=== PATIENT | female | born 1990 | race Hispanic/Latino ===

== ENCOUNTER 2022-03-10 18:06 | Emergency (ER) | payer OTHER ==
[~2022-03-10] VITALS: Ht 162.6 cm; Wt 77.1 kg
[2022-03-10] MEDS ORDERED: ACETAMINOPHEN 500 MG TABLET PO ONE (18:30)
[2022-03-10 19:29] VITALS: BP 119/73
[2022-03-10] MEDS ORDERED: NAPR-1180 PO (19:36)
== END 2022-03-10 19:41 | disposition home or self-care (01) ==
LOC: EDH 18:06
DX: S16.1XXA Strain of muscle, fascia and tendon at neck level, initial encounter (principal); S20.212A Contusion of left front wall of thorax, initial encounter; S80.12XA Contusion of left lower leg, initial encounter; Z79.1 Long term (current) use of non-steroidal anti-inflammatories (NSAID); V49.49XA Driver injured in collision with other motor vehicles in traffic accident, initial encounter; Y93.89 Activity, other specified; Y92.89 Other specified places as the place of occurrence of the external cause; Y99.8 Other external cause status
CPT/HCPCS: 36415; 71250; 72125; 73590; 84703

== ENCOUNTER 2024-08-20 19:50 | Emergency (ER) | payer OTHER ==
[~2024-08-20] VITALS: Ht 162.6 cm; Wt 72.6 kg
[~2024-08-20 19:50] MED LIST: NAPR-1180 PO
[2024-08-20 20:50] LABS: BASOPHILS # (AUTO) 0.06 K/uL (0.00-0.20); BASOPHILS % (AUTO) 0.4 % (0.0-5.0); EOSINOPHILS # (AUTO) 0.02 K/uL (0.00-0.70); EOSINOPHILS % (AUTO) 0.1 % (0.0-8.0); HEMATOCRIT 31.9 % (36-48); IMMATURE GRANULOCYTE ABSOLUTE 0.07 K/uL (0-1); LYMPHOCYTES # (AUTO) 1.3 K/uL (1.0-4.8); LYMPHOCYTES % (AUTO) 8.6 % (21.0-51.0); MEAN CORPUSCULAR HEMOGLOBIN 26.2 pg (27.0-33.0); MEAN CORPUSCULAR VOLUME 81.8 fL (79-99); MONOCYTES # (AUTO) 0.3 K/uL (0.1-1.0); MONOCYTES % (AUTO) 1.8 % (3.0-13.0); NEUTROPHILS # (AUTO) 13.3 K/uL (1.8-7.7); NEUTROPHILS % (AUTO) 88.6 % (40.0-77.0); PLATELET COUNT (AUTO) 536 K/uL (130-400); RED CELL DISTRIBUTION WIDTH 14.8 % (11.0-15.5)
[2024-08-20 21:03] LABS: CREATININE 0.7 mg/dL (0.5-1.0); POTASSIUM 3.4 mmol/L (3.5-5.1)
[2024-08-20 21:08] LABS: ALBUMIN 3.6 g/dL (3.5-5.0); BILIRUBIN,DIRECT 0.1 mg/dL (0.0-0.3); BILIRUBIN,TOTAL 0.3 mg/dL (0.2-1.0); TOTAL PROTEIN, SERUM 7.7 g/dL (6.0-8.3)
--- NOTE | 2024-08-20 21:30 | HMCIMG ---
CHEST 1VW HISTORY: Chest pain COMPARISON: None FINDINGS: A frontal projection of the chest was obtained. No acute pulmonary infiltrates is seen. The heart is normal in size. Prominent interstitial markings are seen. No evidence of aortic calcification is seen. IMPRESSION: 1. No acute pulmonary infiltrate is seen.
[2024-08-20] MEDS: 0.9%NACL 1000ML 1,000 ML IV ONE (21:51)
[2024-08-20] MEDS: PANTOPrazole 40 MG/VIAL IVP ONE (21:51)
[2024-08-20] MEDS: morPHINE 4 MG SYG IVP ONE (21:52)
[2024-08-20] MEDS: ondanSETRON 4MG INJ IVP ONE (21:52)
[2024-08-21] MEDS ORDERED: IOHEXOL 350 MG/ML 100ML INFUS..BTL IV ONE (00:36)
--- NOTE | 2024-08-21 00:44 | ERN ---
ED Note History of Present Illness Stated Complaint: ABD PAIN, BLURRY VISION, CHEST PAIN Chief Complaint: Abdominal Pain Time Seen by MD: 19:51 Time Seen by Midlevel: 19:51 Dictation: Patient is a 34-year-old female with no significant medical history who presents to the emergency department with complaints of right upper and lower abdominal pain, chest pain, nausea nonbloody vomiting, blurry vision onset 3:00 p.m.. Patient denies any headache, head trauma, fevers diarrhea or constipation. Allergies: Coded Allergies: No Known Allergies (Unverified Allergy, Unknown, 03/10/22) Home Meds Active Scripts Pantoprazole Sodium (Protonix) 20 Mg Tablet.dr, 1 TAB PO DAILY for 30 Days, #30 TAB 0 Refills Prov:RON GONZALEZ 08/21/24 Ondansetron (Ondansetron Odt) 4 Mg Tab.rapdis, 4 MG PO BID for 7 Days, #14 TAB Prov:RON GONZALEZ 08/21/24 Naproxen (Naprosyn) 500 Mg Tablet, 500 MG PO BIDPC, #60 TAB Prov:USLEMA LIN 03/10/22 Past Medical History Past Medical History: No Pertinent History Surgical History: None Family History: Negative Social History: Negative RN Note Reviewed/Agreed w/PFSH: Yes Review of System Dictation Constitutional: Negative for fever,chills, and weight loss Eyes: Negative for injury, pain,redness, and discharge positive for blurry vision ENT: Negative for injury,pain or swelling Cardiovascular: Negative for palpitations, and edema positive for chest pain Respiratory: Negative for shortness of breath, cough, and wheezing, Abdomen/GI: Negative for diarrhea, and constipation positive for abdominal pain, nausea, vomiting, Back: Negative for injury and pain : Negative for injury, bleeding and discharge MS/Extremity: Negative for injury and deformity Skin: Negative for rash, and discoloration Neuro: Negative for headache, weakness, numbness, tingling, and seizure Psych: Negative for suicide ideation, homicidal ideation, and hallucinations Initial Vital Sign VS Vital Signs Date Time Temp Pulse Resp B/P (MAP) Pulse Ox O2 Delivery O2 Flow Rate FiO2 08/20/24 20:32 98.2 67 20 121/75 100 Room Air 08/20/24 22:04 0 21 Physical Exam Dictation Vital Signs reviewed General Appearance: Alert, oriented x 3, no acute distress, well developed, nourished. Head and Face: non-traumatic. Eyes: PERRL, pink conjunctivas, eyelid no trauma, anterior chamber with arcus senilis. Ears: Pinnas intact and no signs of trauma or erythema ear canals clear and no discharge TM no erythema Nose: No discharge, no bleeding. Oropharynx: Mouth normal, tongue pink. pharynx clear,no erythema, tonsils no exudates, no abscesses noted, mucous membrane moist Neck: Supple, non-tender, no thyromegaly, no masses, no JVD, no bruits Breast:Deferred Chest:No tenderness, no crepitus, no paradoxical movement, no retractions Lungs:Clear, well-ventilated, symmetric, no rales, no wheezing, no rhonchi, no stridor, good breath sounds bilaterally Heart: Regular rate, regular rhythm, no murmur, no gallops Vascular: no peripheral edema, Abdomen: Soft, positive bowel sounds, nondistended, no guarding, Right upper and lower tenderness, no rebound, no masses no hepatomegaly, no splenomegaly, no Dugan's sign, no hernias. Rectal: Deferred Genital: Deferred Neurological: Normal speech, motor function intact, sensory function intact , upper extremities equal in strength, lower extremities equal in strength Musculoskeletal: Neck nontender, full range of motion, back nontender, full range of motion, Extremities: nontender, full range of motion Skin: Color pink, dry, no turgor, no rash, no lacerations, no abrasions, no contusions. Lymphatic: Deferred Results (Laboratory/Radiology) Laboratory/Radiology Laboratory Tests Test 08/20/24 20:43 08/21/24 01:06 White Blood Count 15.0 K/uL (4.8-10.8) H Red Blood Count 3.90 MIL/uL (4.00-5.50) L Hemoglobin 10.2 g/dL (12.0-16.0) L Hematocrit 31.9 % (36-48) L Mean Corpuscular Volume 81.8 fL (79-99) Mean Corpuscular Hemoglobin 26.2 pg (27.0-33.0) L Mean Corpuscular Hemoglobin Concent 32.0 g/dL (32.0-36.0) Red Cell Distribution Width 14.8 % (11.0-15.5) Platelet Count 536 K/uL (130-400) H Mean Platelet Volume 9.5 fL (7.5-10.5) Immature Granulocyte % (Auto) 0.5 % (0-1) Neutrophils (%) (Auto) 88.6 % (40.0-77.0) H Lymphocytes (%) (Auto) 8.6 % (21.0-51.0) L Monocytes (%) (Auto) 1.8 % (3.0-13.0) L Eosinophils (%) (Auto) 0.1 % (0.0-8.0) Basophils (%) (Auto) 0.4 % (0.0-5.0) Neutrophils # (Auto) 13.3 K/uL (1.8-7.7) H Lymphocytes # (Auto) 1.3 K/uL (1.0-4.8) Monocytes # (Auto) 0.3 K/uL (0.1-1.0) Eosinophils # (Auto) 0.02 K/uL (0.00-0.70) Basophils # (Auto) 0.06 K/uL (0.00-0.20) Absolute Immature Granulocyte (auto 0.07 K/uL (0-1) Nucleated Red Blood Cells 0.0 % (0.0-0.19) White Cell Morphology Comment See comments Sodium Level 132 mmol/L (136-145) L Potassium Level 3.4 mmol/L (3.5-5.1) L Chloride Level 98 mmol/L (101-111) L Carbon Dioxide Level 28 mmol/L (21-32) Blood Urea Nitrogen 11 mg/dL (7-18) Creatinine 0.7 mg/dL (0.5-1.0) Glomerular Filtration Rate Calc 116 mL/min (>90) Random Glucose 104 mg/dL (70-105) Total Calcium 8.8 mg/dL (8.5-10.1) Total Bilirubin 0.3 mg/dL (0.2-1.0) Direct Bilirubin 0.1 mg/dL (0.0-0.3) Aspartate Amino Transf (AST/SGOT) 13 U/L (10-37) Alanine Aminotransferase (ALT/SGPT) 14 U/L (12-78) Alkaline Phosphatase 72 U/L (50-136) Total Creatine Kinase 65 U/L (21-232) Troponin I High Sensitivity 8 ng/L (4-50) Total Protein 7.7 g/dL (6.0-8.3) Albumin 3.6 g/dL (3.5-5.0) Lipase 44 U/L (16-77) Serum Test, Qualitative NEGATIVE (NEGATIVE) Urine Color COLORLESS (YELLOW) Urine Appearance CLEAR (CLEAR) Urine pH 6.5 (5.0-8.0) Urine Specific [place] 1.007 (1.001-1.031) Urine Protein NEGATIVE mg/dL (NEGATIVE) Urine Glucose (UA) NEGATIVE mg/dL (NEGATIVE) Urine Ketones 5 mg/dL (NEGATIVE) H Urine Occult Blood NEGATIVE (NEGATIVE) Urine Nitrate NEGATIVE (NEGATIVE) Urine Bilirubin NEGATIVE mg/dL (NEGATIVE) Urine Urobilinogen 0.2 mg/dL (0.2-1.0) Urine Leukocyte Esterase NEGATIVE [place]/uL Urine RBC 0-1 /HPF (0-1) Urine WBC 0-1 /HPF (0-1) Urine Squamous Epithelial Cells RARE /HPF (0-2) Urine Bacteria None /HPF (None Seen) Urine Opiates Screen POSITIVE (NEGATIVE) H Urine Barbiturates Screen NEGATIVE (NEGATIVE) Urine Phencyclidine Screen NEGATIVE (NEGATIVE) Urine Amphetamines Screen NEGATIVE (NEGATIVE) Urine Benzodiazepines Screen NEGATIVE (NEGATIVE) Urine Cocaine Screen NEGATIVE (NEGATIVE) Urine Marijuana (THC) Screen NEGATIVE (NEGATIVE) Labs Reviewed?: Yes EKG: (+) rhythm (Sinus rhythm) EKG Comment: Date:08/20/2024 Time:2024 Ventricular rate:65 NE interval:186 QRS duration:94 QT/QTc:417 EKG interpretation: Sinus rhythm Reviewed by ED Attending no STEMI ED Course ED Course Orders Procedure Category Date Status Time Cbc With Differential LAB 08/20/24 Complete 20:02 Troponin I High LAB 08/20/24 Complete Sensitivity 20:02 Urinalysis Profile LAB 08/20/24 Complete 20:02 12 Lead Ekg Tracing- EKG 08/20/24 Logged Technical 20:02 0.9%Nacl 1000ml (Ns PHA 08/20/24 Complete 1000ml) 20:30 Morphine 4mg Syg PHA 08/20/24 Complete (Morphine 4mg Syg) 20:30 Ondansetron 4mg Inj PHA 08/20/24 Complete (Zofran 4mg Inj) 20:30 Pantoprazole 40mg Inj PHA 08/20/24 Complete (Protonix 40mg Inj 20:30 Creatine Kinase, Total LAB 08/20/24 Complete 20:02 Chest 1vw RAD 08/20/24 Resulted 20:02 Lipase LAB 08/20/24 Complete 20:02 Basic Metabolic Panel LAB 08/20/24 Complete 20:02 Hepatic Function Panel LAB 08/20/24 Complete 20:02 Drug Screen Urine LAB 08/20/24 Complete 21:57 Testing, LAB 08/20/24 Complete Serum Hcg 23:03 Ct Abdomen/Pelvis CT 08/20/24 Resulted W/Contrast 23:35 Iohexol (Omnipaque) PHA 08/21/24 Complete 00:36 Morphine 4mg Syg PHA 08/21/24 Complete (Morphine 4mg Syg) 01:00 Potassium Bicarb/Cit PHA 08/21/24 Complete Ac 25meq (K-Lyte Ta 01:00 Ceftriaxone 1g Vial PHA 08/21/24 Complete (Rocephine 1g Inj) 01:00 Current Medications Medications (Trade) Dose Ordered Sig/Mynor Route PRN Reason Start Time Stop Time Status Last Admin Dose Admin Ceftriaxone Sodium (ROCEphine 1G INJ) 1 gm ONCE ONCE IVPB 08/21/24 01:00 08/21/24 01:01 DC 08/21/24 01:56 Iohexol (Omnipaque) 35,000 mg STK-MED ONCE IV 08/21/24 00:36 08/21/24 00:42 DC Morphine Sulfate (morPHINE 4MG SYG) 4 mg ONCE ONCE IVP 08/20/24 20:30 08/20/24 20:31 DC 08/20/24 21:52 Morphine Sulfate (morPHINE 4MG SYG) 4 mg ONCE ONCE IVP 08/21/24 01:00 08/21/24 01:01 DC 08/21/24 01:01 Ondansetron HCl (zoFRAN 4MG INJ) 4 mg ONCE ONCE IVP 08/20/24 20:30 08/20/24 20:31 DC 08/20/24 21:52 Pantoprazole Sodium (PROTonix 40MG INJ) 40 mg ONCE ONCE IVP 08/20/24 20:30 08/20/24 20:31 DC 08/20/24 21:51 Potassium Bicarbonate (K-Lyte Tablet Eff 25 Meq Tablet.eff) 25 meq ONCE ONCE PO 08/21/24 01:00 08/21/24 01:01 DC 08/21/24 01:56 Sodium Chloride 1,000 ml @ 0 mls/hr ONCE ONCE IV 08/20/24 20:30 08/20/24 20:31 DC 08/20/24 21:51 Vital Signs Date Time Temp Pulse Resp B/P (MAP) Pulse Ox O2 Delivery O2 Flow Rate FiO2 08/20/24 22:04 98.2 65 16 120/75 98 Room Air* 0 21 08/20/24 20:32 98.2 67 20 121/75 100 Room Air [facility] [address] [place] [address] IMAGING REPORT Signed PATIENT: KRISTEL ELLIOTT MR#: [id number] : 1990 SEX: F AGE: 34 LOCATION: [facility] ORDER 35 STATUS: REG ER REPORT#: [id number] SERVICE 34 REASON: rigth upper and lower abd pain ORDERING PHYSICIAN: BENY MESA PROCEDURE: ABD PEL W - CT ABDOMEN/PELVIS W/CONTRAST CT ABDOMEN/PELVIS W/CONTRAST HISTORY: Abdominal pain COMPARISON: None TECHNIQUE: Multiple sequential axial images of the abdomen and pelvis were obtained from the dome of the diaphragm through symphysis pubis. Patient was not given contrast through intravenous route. Oral contrast was not given. FINDINGS: No pleural effusion is seen bilaterally. There is no evidence of parenchymal disease or pulmonary nodule of the visualized lower lungs. Degenerative changes of the thoracolumbar spine are present. The heart is not enlarged. Liver measures 15 cm. Gallbladder is distended. The liver, spleen, adrenal glands and pancreas are unremarkable. There is no evidence of hydronephrosis bilaterally. No evidence of renal stone is seen. Fecal material is seen in the colon. There are normal size retroperitoneal and mesenteric lymph nodes. No ascites is seen. No CT evidence of acute appendicitis is seen. Nonspecific sigmoid colon wall thickening is seen. Clinical correlation is recommended. Pelvic sidewalls are symmetric bilaterally. Bladder is well distended without wall thickening. IMPRESSION: 1. Fecal material in the colon. Nonspecific sigmoid colon wall thickening. No ascites. Gallbladder is distended. CT was performed with one or more following dose reduction techniques: automated exposure control, adjustment of the mA and kv according to patient's size, or use of a iterative reconstruction technique. DICTATED BY: JAVIER HALL MD DATE: 08/21/24129 ELECTRONICALLY SIGNED BY: JAVIER HALL MD DATE: 08/21/24132 Medical Decision Making MDM Patient is a 34-year-old female with no significant medical history who presents to the emergency department with complaints of right upper and lower abdominal pain, chest pain, nausea nonbloody vomiting, blurry vision onset 3:00 p.m.. Patient denies any headache, head trauma, fevers diarrhea or constipation. CBC showed leukocytosis, mild normocytic anemia, chemistry showed mild hypochloremia, hypokalemia, hyponatremia, negative troponin, negative liver enzymes, negative lipase, negative troponin Differential diagnosis: ACS, dehydration, gastroenteritis, pancreatitis, appendicitis, UTI DX & DISP Disposition: Discharge Departure Impression: Primary Impression: Dehydration Additional Impression: Constipation Condition: Stable Scripts Pantoprazole Sodium (Protonix) 20 Mg Tablet.dr 1 TAB PO DAILY for 30 Days, #30 TAB 0 Refills Prov: RON GONZALEZ 08/21/24 Ondansetron (Ondansetron Odt) 4 Mg Tab.rapdis 4 MG PO BID for 7 Days, #14 TAB Prov: RON GONZALEZ 08/21/24 Additional Instructions: Your blood work today is stable. Your urinalysis does not show any evidence of infection. Your CT scan of the abdomen and pelvis shows an enlarged gallbladder but no evidence of acute cholecystitis or any other infection. There is large amount of stool burden on your CT scan. Please follow up with your primary care doctor in 2-3 days for repeat evaluation. Return to the ER for any new or worsening symptoms Referrals: NONE (PCP) Time of Disposition: 01:47 I have reviewed the case, and I agree with, Diagnosis and Plan I performed the substantive portion of the visit. I have reviewed and personally made and approve the management plan that is documented in the note by myself or the IVETTE. I acknowledge for responsibility for the patient's management plan. BENY MESA Aug 21, 2024 00:44 RON GONZALEZ Aug 21, 2024 01:55
[2024-08-21] MEDS: morPHINE 4 MG SYG IVP ONE (01:01)
--- NOTE | 2024-08-21 01:07 | NUR ---
taken to ct scan
[2024-08-21 01:28] LABS: ADD UA MICROSCOPIC YES; APPEARANCE,URINE CLEAR (CLEAR); BILIRUBIN,URINE NEGATIVE (NEGATIVE); COLOR,URINE COLORLESS (YELLOW); GLUCOSE, URINE (UA) NEGATIVE (NEGATIVE); KETONES,URINE 5 mg/dL (NEGATIVE); LEUKOCYTE ESTERASE ,URINE NEGATIVE Leu/uL (NEGATIVE); NITRATE,URINE NEGATIVE (NEGATIVE); OCCULT BLOOD,URINE NEGATIVE (NEGATIVE); PH,URINE 6.5 (5.0-8.0); PROTEIN,URINE NEGATIVE (NEGATIVE); UROBILINOGEN,URINE 0.2 mg/dL (0.2-1.0)
[2024-08-21 01:29] LABS: RBC,URINE 0-1 /HPF (0-1); SQUAMOUS EPITHELIAL CELL,UR RARE /HPF (0-2); WBC,URINE 0-1 /HPF (0-1)
--- NOTE | 2024-08-21 01:33 | HMCIMG ---
CT ABDOMEN/PELVIS W/CONTRAST HISTORY: Abdominal pain COMPARISON: None TECHNIQUE: Multiple sequential axial images of the abdomen and pelvis were obtained from the dome of the diaphragm through symphysis pubis. Patient was not given contrast through intravenous route. Oral contrast was not given. FINDINGS: No pleural effusion is seen bilaterally. There is no evidence of parenchymal disease or pulmonary nodule of the visualized lower lungs. Degenerative changes of the thoracolumbar spine are present. The heart is not enlarged. Liver measures 15 cm. Gallbladder is distended. The liver, spleen, adrenal glands and pancreas are unremarkable. There is no evidence of hydronephrosis bilaterally. No evidence of renal stone is seen. Fecal material is seen in the colon. There are normal size retroperitoneal and mesenteric lymph nodes. No ascites is seen. No CT evidence of acute appendicitis is seen. Nonspecific sigmoid colon wall thickening is seen. Clinical correlation is recommended. Pelvic sidewalls are symmetric bilaterally. Bladder is well distended without wall thickening. IMPRESSION: 1. Fecal material in the colon. Nonspecific sigmoid colon wall thickening. No ascites. Gallbladder is distended. CT was performed with one or more following dose reduction techniques: automated exposure control, adjustment of the mA and kv according to patient's size, or use of a iterative reconstruction technique.
[2024-08-21 01:36] LABS: AMPHET/METH SCREEN,URINE NEGATIVE (NEGATIVE); BARBITURATE SCREEN, URINE NEGATIVE (NEGATIVE); BENZODIAZEPINES SCREEN,URINE NEGATIVE (NEGATIVE); CANNABINOID SCREEN,URINE NEGATIVE (NEGATIVE); COCAINE SCREEN,URINE NEGATIVE (NEGATIVE); OPIATE SCREEN,URINE POSITIVE (NEGATIVE); PHENCYCLIDINE SCREEN,URINE NEGATIVE (NEGATIVE)
[2024-08-21] MEDS ORDERED: ONDA-243 PO (01:47)
[2024-08-21] MEDS ORDERED: PANT20TA PO (01:47)
[2024-08-21] MEDS: PoTASSium BIcarbonate/CIT AC 25 MEQ TABLET.EFF PO ONE (01:56)
[2024-08-21] MEDS: cefTRIAXone 1G VIAL IVPB ONE (01:56)
[2024-08-21] MEDS: ondanSETRON 4MG INJ IVP ONE (02:14)
[2024-08-21] MEDS: ketOROlac 15MG/ML VIAL (15MG/ML) IV ONE (02:14)
[2024-08-21 02:56] VITALS: BP 124/72; PULSE 68; RESP 16; TEMP 98.2; O2SAT 99
--- NOTE | 2024-08-21 06:48 | EKG ---
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
== END 2024-08-21 02:55 | disposition home or self-care (01) ==
LOC: EDH 19:50
DX: E86.0 Dehydration (principal); K59.00 Constipation, unspecified; Z79.899 Other long term (current) drug therapy
CPT/HCPCS: 99285; 74177; 96375 ×2; 71045; 82550; 80076; 84484; 80048; 80305; 84703; 83690; 85025; 36415; 93005; 81001; 96365; 96376; J7030; J2405 ×2; J2270 ×2; J2470; J1885; J0696; Q9967